=== PATIENT | female | born 1990 | race Caucasian/White ===

== ENCOUNTER 2019-08-06 07:30 | Observation (INO) | payer OTHER ==
--- NOTE | 2019-08-05 10:01 | Anesthesia Consultation ---
Anesthesia Consult and Med Hx Date of service: 08/05/19 - Airway Anesthetic Teeth Evaluation: Good ROM Head & Neck: Adequate Mental/Hyoid Distance: Adequate Mallampati Class: Class II Intubation Access Assessment: Good - Pre-Operative Health Status ASA Pre-Surgery Classification: ASA2 Proposed Anesthetic Plan: General - Central Nervous System Hx Psychiatric Problems: No - Endocrine Hx Non-Insulin Dependent Diabetes: No (PCOS) - Hematic Hx Anemia: Yes - Other Systems Hx Cancer: No
[2019-08-05 10:09] LABS: Basophils % (Auto) 0.4 % (0.0-1.8); Eosinophils % (Auto) 0.8 % (0.0-4.3); Hematocrit 35.5 % (30.3-42.9); Hemoglobin 11.6 gm/dl (10.1-14.3); Lymphocytes # (Auto) 1.7 K/mm3 (1.2-5.4); Lymphocytes % (Auto) 34.7 % (13.4-35.0); Mean Corpuscular HGB Conc 33 % (30-34); Mean Corpuscular Volume 80 fl (79-97); Monocytes # (Auto) 0.3 K/mm3 (0.0-0.8); Monocytes % (Auto) 6.7 % (0.0-7.3); Platelet Count 339 K/mm3 (140-440); Red Blood Count 4.44 M/mm3 (3.65-5.03); Red Cell Distribution Width 15.3 % (13.2-15.2)
[2019-08-05 10:26] LABS: BUN/Creatinine Ratio 20; Blood Urea Nitrogen 10 mg/dL (7-17); Calcium 9.1 mg/dL (8.4-10.2); Hemolysis Index 11
[2019-08-06] MEDS ORDERED: LACTATED RINGERS 1,000 ML ONE ×2 (08:21→13:24)
--- NOTE | 2019-08-06 08:39 | History and Physical Report ---
History of Present Illness Date of examination: 08/06/19 Date of admission: 08/06/2019 Chief complaint: My periods are too heavy History of present illness: Pt is a 28 year old who has a history of PCOS and endometriosis. Pt has had ongoing experience with prolonged heavy and painful cycles and is looking for relief. Discussed treatment options with patient and she has opted for hysterectomy Past History Past Medical History: No medical history Past Surgical History: appendectomy Social history: Medications and Allergies Allergies Allergy/AdvReac Type Severity Reaction Status Date / Time Sulfa (Sulfonamide Allergy Hives Verified 07/31/19 09:29 Antibiotics) Home Medications Medication Instructions Recorded Confirmed Last Taken Type metFORMIN [Glucophage] 500 mg PO QDAY 07/31/19 08/06/19 08/05/19 09:00 History Review of Systems All systems: negative - Genitourinary Genitourinary: dysmenorrhea, menorrhagia Menstruation: currently menstrual, period heavy, menses variable Exam Vital Signs Temp Pulse Resp BP Pulse Ox 98.4 F 77 18 109/63 98 08/05/19 09:45 08/05/19 09:45 08/05/19 09:45 08/05/19 09:45 08/05/19 09:45 - General physical appearance Positive: well developed, well nourished, no distress - Eyes Positive: PERRL, normal occular movement - Neck Positive: no masses, no bruits, trachea midline, no venous distension - Respiratory Positive: normal expansion, normal respiratory effort, clear to auscultation - Cardiovascular Rhythm: regular Heart Sounds: Present: S1 & S2. Absent: rub, click - Extremities Extremities: no ischemia, pulses symmetrical, No edema - Abdomen Abdomen: Present: soft, bowel sounds normal. Absent: tender, distended Hernia: none - Genitourinary Female Genitourinary: normal Results - Labs 08/05/19 09:50 08/05/19 09:50 Abnormal lab results 08/05/19 08/05/19 Range/Units 09:50 09:50 MCH 26 L (28-32) pg RDW 15.3 H (13.2-15.2) % Creatinine 0.5 L (0.7-1.2) mg/dL Diabetes panel 08/05/19 Range/Units 09:50 Sodium 141 (137-145) mmol/L Potassium 4.4 (3.6-5.0) mmol/L Chloride 104.3 (98-107) mmol/L Carbon Dioxide 27 (22-30) mmol/L BUN 10 (7-17) mg/dL Creatinine 0.5 L (0.7-1.2) mg/dL Glucose 93 (65-100) mg/dL Calcium 9.1 (8.4-10.2) mg/dL Calcium panel 08/05/19 Range/Units 09:50 Calcium 9.1 (8.4-10.2) mg/dL Pituitary panel 08/05/19 Range/Units 09:50 Sodium 141 (137-145) mmol/L Potassium 4.4 (3.6-5.0) mmol/L Chloride 104.3 (98-107) mmol/L Carbon Dioxide 27 (22-30) mmol/L BUN 10 (7-17) mg/dL Creatinine 0.5 L (0.7-1.2) mg/dL Glucose 93 (65-100) mg/dL Calcium 9.1 (8.4-10.2) mg/dL Adrenal panel 08/05/19 Range/Units 09:50 Sodium 141 (137-145) mmol/L Potassium 4.4 (3.6-5.0) mmol/L Chloride 104.3 (98-107) mmol/L Carbon Dioxide 27 (22-30) mmol/L BUN 10 (7-17) mg/dL Creatinine 0.5 L (0.7-1.2) mg/dL Glucose 93 (65-100) mg/dL Calcium 9.1 (8.4-10.2) mg/dL Assessment and Plan 28 year old female here for definitive therapy for heavy vaginal bleeding and pain. Will admit for surgery. Consents signed and placed on chart.
--- NOTE | 2019-08-06 08:56 | Anesthesia Day of Surgery ---
Anesthesia Day of Surgery - Day of Surgery Patient Examined: Yes Patient H&P Reviewed: Yes Patient is NPO: Yes
[2019-08-06] MEDS ORDERED: DIPRIVAN 10 MG/ML IV ONE (09:00)
[2019-08-06] MEDS ORDERED: SUBLIMAZE ONE (09:00)
[2019-08-06] MEDS ORDERED: VERSED IV NR (09:00)
[2019-08-06] MEDS ORDERED: LACTATED RINGERS 1,000 ML IV SCH (09:00)
[2019-08-06] MEDS ORDERED: ANCEF/STERILE WATER 2 GM/20 ML 2 GM/20 ML SYRINGE IV NR (09:00)
[2019-08-06] MEDS ORDERED: ZEMURON IV ONE (09:00)
[2019-08-06] MEDS ORDERED: ZOFRAN IV PRN ×2 (09:00→12:33)
[2019-08-06] MEDS ORDERED: SUBLIMAZE IV PRN (09:00)
[2019-08-06] MEDS ORDERED: TYLENOL PO NR (09:00)
[2019-08-06] MEDS ORDERED: XYLOCAINE MPF 2% ONE (09:00)
[2019-08-06] MEDS ORDERED: NEURONTIN PO NR (09:00)
[2019-08-06] MEDS ORDERED: BLOXIVERZ ONE (09:01)
[2019-08-06] MEDS ORDERED: ROBINUL ONE (09:01)
[2019-08-06] MEDS ORDERED: DECADRON ONE (09:01)
[2019-08-06] MEDS ORDERED: ZOFRAN ONE (09:01)
[2019-08-06] MEDS ORDERED: QUELICIN ONE (09:01)
[2019-08-06] MEDS ORDERED: PHENYLEPHRINE/NS Syringe 1,000 MCG/10 ML IV ONE (09:01)
[2019-08-06] MEDS: SUBLIMAZE IV NR ×2 (09:25→09:32)
[2019-08-06] MEDS ORDERED: MARCAINE-EPI 0.25%-1:200,000 INFILTRATI ONE (09:26)
[2019-08-06] MEDS ORDERED: MARCAINE 0.25% INFILTRATI ONE ×2 (10:15→11:15)
[2019-08-06] MEDS ORDERED: NACL 0.9% IR ONE ×2 (11:17→11:18)
[2019-08-06] MEDS ORDERED: PERCOCET 5/325 PO PRN (12:33)
[2019-08-06] MEDS ORDERED: MORPHINE IV PRN (12:33)
[2019-08-06] MEDS ORDERED: REGLAN IV PRN (12:33)
--- NOTE | 2019-08-06 12:36 | Post Operative Note ---
Date of procedure: 08/06/19 Pre-op diagnosis: Menorrhagia Post-op diagnosis: same Findings: Slightly enlarged, boggy uterus, normal uterus Procedure: Total Laparoscopic Hysterectomy Anesthesia: MARIUSZ Surgeon: ASHA MATSON Laborer Driver: ABDIRASHID GUZMAN Estimated blood loss: other (200cc) Pathology: list Specimen disposition: to lab Condition: stable Disposition: PACU
--- NOTE | 2019-08-06 13:56 | Post Anesthesia Evaluation ---
- Post Anesthesia Evaluation Patient Participated: Yes Airway Patent: Yes Stable Respiratory Function: Yes Nausea/Vomiting: No Temp > 96.8F: Yes Pain Manageable: Yes Adequeate Hydration: Yes Anesthesia Complications: No Block Receding Appropriately: Not Applicable Patient on Ventilator: No
[2019-08-06] MEDS: D5LR 1,000 ML IV SCH (17:52)
[2019-08-06] MEDS: TORADOL IV SCH (17:53)
[2019-08-07] MEDS: COLACE PO SCH ×2 (00:47→11:18)
[2019-08-07] MEDS: TORADOL IV SCH ×4 (00:47→14:00)
[2019-08-07] MEDS: D5LR 1,000 ML IV SCH (00:52)
[2019-08-07 04:57] LABS: Hemoglobin 11.6 gm/dl (10.1-14.3)
--- NOTE | 2019-08-07 18:28 | Discharge Summary ---
Providers - Providers Date of Admission: 08/06/19 12:33 Date of discharge: 08/07/19 Attending physician: ASHA MATSON Primary care physician: CLINICAL RADIOLOGIST Hospitalization Reason for admission: vaginal bleeding, other (menorrhagia) Procedure: other (Lap Hysterectomy) Incision: normal, dry, intact Other procedures: none Discharge diagnosis: other Hospital course: unremarkable Condition at discharge: Good Disposition: DC-01 TO HOME OR SELFCARE Plan - Discharge Medications Prescriptions: Ibuprofen [Motrin] 800 mg PO Q8HR PRN #40 tablet PRN Reason: Pain, Moderate (4-6) oxyCODONE /ACETAMINOPHEN [Percocet 5/325] 2 tab PO Q6HR PRN #40 tablet PRN Reason: Pain - Provider Discharge Summary Activity: routine, no sex for 6 weeks, no heavy lifting 4 weeks, no strenuous exercise Diet: routine Instructions: routine Additional instructions: [] Smoking cessation referral if applicable(refer to patient education folder for contact #) [] Refer to [facility]'s [facility] Booklet Call your doctor immediately for: * Fever > 100.5 * Heavy vaginal bleeding ( >1 pad per hour) * Severe persistent headache * Shortness of breath * Reddened, hot, painful area to leg or breast * Drainage or odor from incision. * Keep incision clean and dry at all times and follow doctor's instructions regarding bathing/showering - Follow up plan Follow up: ASHA MATSON MD [Staff Physician] - 14 Days
[2019-08-07 18:39] VITALS: BP 122/71
--- NOTE | 2019-08-07 20:54 | Operative Report ---
Operative Report Operative Report: Preoperative diagnosis: Menorrhagia and irregular menses Postoperative diagnosis: Same with adenomyosis Procedure:Total laparoscopic hysterectomy Surgeon: Kita Ambrosio. Indigo Mixer: Rosario Carmona M.D. Anesthesia: General EBL: 200 mL IV fluids: 1100 mL Urine output: 300 mL Findings: Slightly enlarged and boggy uterus with previously ligated tubes and normal ovaries Specimens: Uterus, fallopian tubes and cervix Complications: None The patient was properly identified as herself. She was then taken to the OR with IV running and in place. She was given general anesthesia without difficulty. She was placed in a dorsal lithotomy position. She was then prepped and draped in normal sterile fashion. Attention was turned to the patient's vagina. A Herrera catheter was inserted into her bladder. The speculum was then placed the patient's vagina. The cervix was visualized and grasped with tenaculum. The large Vesicare retractor was placed into the patient's uterus and the bulb inflated. The surgeon's gloves were changed and attention turned to the patient's abdomen. A small incision was made in the patient's umbilicus incision a 5 mm trocar was placed. The laparoscope confirmed intra- abdominal placement. The abdomen was insufflated with CO2 gas to approximately 25 mmHg. 2 additional incisions were made in the right and left lower quadrants. Through both of these incisions 5 mm trochars were placed. With direct visualization a second trocar was placed through an incision in the left lower quadrant. Both tubes were found and followed out to the fimbriated ends. Each tube was cauterized at the portion nearest the cornua, then cauterized across the broad ligament until the tube was completely detached. There was excellent hemostasis at the end of this portion of the procedure. Each tube was handed off for pathology. At this point the abdomen was deflated. All instruments were then removed from the abdomen. The incisions were then closed with 4-0 Monocryl. The incisions were also injected with quarter percent Marcaine. The patient tolerated the procedure well she was then awakened and taken recovery in stable condition. Sponge needle and instrument counts were correct 2.
== END 2019-08-07 19:05 | disposition home or self-care (01) ==
LOC: OR 07:30 → OB 12:33
PROVIDERS: ADMIT Obstetrics & Gynecology; ATTEND Obstetrics & Gynecology
DX: N92.0 Excessive and frequent menstruation with regular cycle (principal); Z90.49 Acquired absence of other specified parts of digestive tract
CPT/HCPCS: 36415; 58571; 80048; 81025; 84703; 85014; 85018; 85025; 86850; 86900; 86901; 88302; 88307; 96374; 96376; A4217; G0378; J0330; J0690; J1100; J1885; J2250; J2370; J2405; J2704; J2710; J3010; J7120; J7121